=== PATIENT | male | born 1955 | race Hispanic/Latino ===

== ENCOUNTER 2017-05-20 13:17 | Emergency (ER) | payer MEDICAID ==
[~2017-05-20] VITALS: Ht 165.1 cm; Wt 140.0 kg
[~2017-05-20 13:17] MED LIST: AMLODIPINE BESYL5 MG PO; AMLODIPINE10 MG PO; JANUMET1 TA1 PO; LISINOPRIL20 MG PO; ZESTRIL/PRI20 MG/TAB PO; catapres PO
[2017-05-20] MEDS ORDERED: ULTRAM50 M1 PO (14:18)
[2017-05-20 14:32] VITALS: BP 220/102
== END 2017-05-20 14:52 | disposition home or self-care (01) | DRG 604 ==
LOC: ED 13:17
DX: S20.212A Contusion of left front wall of thorax, initial encounter (principal); I12.0 Hypertensive chronic kidney disease with stage 5 chronic kidney disease or end stage renal disease; N18.6 End stage renal disease; E11.22 Type 2 diabetes mellitus with diabetic chronic kidney disease; W06.XXXA Fall from bed, initial encounter; Z99.2 Dependence on renal dialysis

== ENCOUNTER 2017-11-25 13:15 | Emergency (ER) | payer MEDICAID ==
[~2017-11-25] VITALS: Ht 165.1 cm; Wt 61.8 kg
[~2017-11-25 13:15] MED LIST changes: +ULTRAM50 M1 PO
[2017-11-25 14:03] LABS: IMMATURE GRANULOCYTES 0.5 % (0.0-1.0); MEAN CORPUSCULAR HGB 31.6 pG CALC (26.0-32.0); MEAN CORPUSCULAR HGB CONC 34.6 g/L CALC (32.0-36.0); NEUT# 4.48 thou/uL (1.82-7.42); RED BLOOD COUNT 1.96 mill/uL (4.70-6.10); RED CELL DISTRI WIDTH 11.7 % (11.5-15.5)
[2017-11-25 14:09] LABS: HEMATOCRIT 17.9 % (39.0-50.0); HEMOGLOBIN 6.2 g/dl (14.0-18.0); MEAN CELL VOLUME 91.3 fL CALC (80.0-100.0)
[2017-11-25 14:17] LABS: CREATININE 9.1 mg/dL (0.7-1.3); POTASSIUM 5.6 mmol/l (3.5-5.1)
[2017-11-25 15:25] VITALS: BP 183/96
[2017-11-25 15:45] VITALS: BP 193/97
[2017-11-25 16:55] VITALS: BP 183/91
[2017-11-25 17:22] VITALS: BP 183/91
== END 2017-11-25 17:22 | DRG 811 ==
LOC: ED 13:15
PROVIDERS: Family Medicine
DX: D64.9 Anemia, unspecified (principal); N18.6 End stage renal disease; I12.0 Hypertensive chronic kidney disease with stage 5 chronic kidney disease or end stage renal disease; E11.65 Type 2 diabetes mellitus with hyperglycemia; Z99.2 Dependence on renal dialysis; R51 Headache
CPT/HCPCS: P9016

== ENCOUNTER 2018-07-20 17:54 | Emergency (ER) | payer MEDICAID ==
[~2018-07-20] VITALS: Ht 165.1 cm; Wt 62.0 kg
[2018-07-20] MEDS ORDERED: CLOPIDOGREL75 MG PO (18:13)
[2018-07-20] MEDS ORDERED: LOSARTAN POTASS50 MG PO (18:13)
[2018-07-20] MEDS ORDERED: NIFEDIPINE30 MG PO (18:13)
[2018-07-20] MEDS ORDERED: LASIX 40 MG TAB40 MG PO (18:14)
[2018-07-20 19:21] LABS: IMMATURE GRANULOCYTES 0.5 % (0.0-5.0); MEAN CELL VOLUME 89.1 fL CALC (80.0-100.0); MEAN CORPUSCULAR HGB 30.7 pG CALC (26.0-32.0); MEAN CORPUSCULAR HGB CONC 34.5 g/L CALC (32.0-36.0); NEUT# 11.89 thou/uL (1.82-7.42); RED BLOOD COUNT 3.48 mill/uL (4.70-6.10); RED CELL DISTRI WIDTH 12.9 % (11.5-15.5)
[2018-07-20 19:23] LABS: HEMOGLOBIN 10.7 g/dl (14.0-18.0)
[2018-07-20] MEDS ORDERED: ROBITUSSIN AC10 ML PO (19:28)
[2018-07-20] MEDS ORDERED: DOXYCYC MONO100 M1 PO (19:28)
[2018-07-20 19:51] VITALS: BP 155/77
== END 2018-07-20 19:51 | disposition home or self-care (01) ==
LOC: ED 17:54
PROVIDERS: Family Medicine
DX: J20.9 Acute bronchitis, unspecified (principal); R50.9 Fever, unspecified; R05 Cough; R09.89 Other specified symptoms and signs involving the circulatory and respiratory systems; R51 Headache

== ENCOUNTER 2018-07-28 10:11 | Emergency (ER) | payer MEDICAID ==
[~2018-07-28] VITALS: Ht 165.1 cm; Wt 93.0 kg
[~2018-07-28 10:11] MED LIST changes: +CLOPIDOGREL75 MG PO; +DOXYCYC MONO100 M1 PO; +LASIX 40 MG TAB40 MG PO; +LOSARTAN POTASS50 MG PO; +NIFEDIPINE30 MG PO; +ROBITUSSIN AC10 ML PO
[2018-07-28] MEDS ORDERED: DOXYCYC MONO100 M1 PO (10:41)
[2018-07-28 11:04] VITALS: BP 170/69
== END 2018-07-28 11:00 | disposition home or self-care (01) ==
LOC: ED 10:11
DX: J40 Bronchitis, not specified as acute or chronic (principal); E11.9 Type 2 diabetes mellitus without complications; I10 Essential (primary) hypertension; J02.9 Acute pharyngitis, unspecified; R05 Cough; H92.03 Otalgia, bilateral

== ENCOUNTER 2018-08-17 12:11 | Emergency (ER) | payer MEDICAID ==
[~2018-08-17] VITALS: Ht 165.1 cm; Wt 60.0 kg
[2018-08-17 13:25] LABS: HEMATOCRIT 33.4 % (39.0-50.0); HEMOGLOBIN 11.4 g/dl (14.0-18.0); IMMATURE GRANULOCYTES 0.3 % (0.0-5.0); MEAN CORPUSCULAR HGB 30.7 pG CALC (26.0-32.0); MEAN CORPUSCULAR HGB CONC 34.1 g/L CALC (32.0-36.0); NEUT# 2.59 thou/uL (1.82-7.42); RED BLOOD COUNT 3.71 mill/uL (4.70-6.10); RED CELL DISTRI WIDTH 15.3 % (11.5-15.5)
[2018-08-17 13:38] LABS: ALBUMIN 3.6 g/dL (3.2-5.0); BILIRUBIN, TOTAL 0.6 mg/dL (0.0-1.4)
[2018-08-17 13:40] LABS: CREATININE 3.3 mg/dL (0.7-1.3); POTASSIUM 3.6 mmol/l (3.5-5.1)
[2018-08-17] MEDS ORDERED: PROTONIX40 M2 PO (15:51)
[2018-08-17 16:14] VITALS: BP 171/78
== END 2018-08-17 16:38 | disposition home or self-care (01) ==
LOC: ED 12:11
PROVIDERS: Emergency Medicine
DX: R07.89 Other chest pain (principal); I12.0 Hypertensive chronic kidney disease with stage 5 chronic kidney disease or end stage renal disease; E11.22 Type 2 diabetes mellitus with diabetic chronic kidney disease; N18.6 End stage renal disease; T50.906A Underdosing of unspecified drugs, medicaments and biological substances, initial encounter; Z91.128 Patient's intentional underdosing of medication regimen for other reason; Z99.2 Dependence on renal dialysis

== ENCOUNTER 2019-03-05 20:35 | Emergency (ER) | payer MEDICAID ==
[~2019-03-05] VITALS: Ht 165.1 cm; Wt 62.8 kg
[~2019-03-05 20:35] MED LIST changes: +PROTONIX40 M2 PO
[2019-03-05 21:29] LABS: HEMATOCRIT 32.6 % (39.0-50.0); HEMOGLOBIN 10.9 g/dl (14.0-18.0); IMMATURE GRANULOCYTES 0.2 % (0.0-5.0); MEAN CELL VOLUME 89.8 fL CALC (80.0-100.0); MEAN CORPUSCULAR HGB CONC 33.4 g/L CALC (32.0-36.0); NEUT# 4.4 thou/uL (1.82-7.42); RED BLOOD COUNT 3.63 mill/uL (4.70-6.10)
[2019-03-05 21:43] LABS: ALBUMIN 4.1 g/dL (3.2-5.0); ANION GAP 19 (6-22 (CALC)); BILIRUBIN, TOTAL 0.6 mg/dL (0.0-1.4); BUN 42 mg/dL (8-23); CARBON DIOXIDE 27 mmol/l (22-30); CHLORIDE 92 mmol/l (95-108); POTASSIUM 4.3 mmol/l (3.5-5.1); SGOT/AST 26 u/l (19-48); SODIUM 134 mmol/l (137-146); TOTAL PROTEIN 7.6 g/dL (6.3-8.2)
[2019-03-05 21:50] LABS: ALKALINE PHOSPHATASE 228 u/l (38-126); BUN/CREATININE RATIO 8 (12-20 (CALC)); GFR 11 ML/MIN (>=60 (CALC)); GFR FOR AFR.AMER. 13 ML/MIN (>=60 (CALC))
[2019-03-05 21:51] LABS: CREATININE 5.3 mg/dL (0.7-1.3)
[2019-03-05 22:13] LABS: MYOGLOBIN 593 ng/mL (0 - 121)
[2019-03-06] MEDS ORDERED: NOVOLIN 70/30 SC ×2 (00:29→00:30)
[2019-03-06] MEDS ORDERED: NIFEDIPINE10 M1 PO (00:29)
[2019-03-06 00:47] VITALS: BP 147/58
== END 2019-03-06 00:53 | disposition home or self-care (01) ==
LOC: ED 20:35
PROVIDERS: Emergency Medicine
DX: E11.65 Type 2 diabetes mellitus with hyperglycemia (principal); E11.22 Type 2 diabetes mellitus with diabetic chronic kidney disease; I12.0 Hypertensive chronic kidney disease with stage 5 chronic kidney disease or end stage renal disease; N18.6 End stage renal disease; T38.3X6A Underdosing of insulin and oral hypoglycemic [antidiabetic] drugs, initial encounter; Z91.128 Patient's intentional underdosing of medication regimen for other reason; Z99.2 Dependence on renal dialysis; Z79.4 Long term (current) use of insulin